=== PATIENT | female | born 1965 | race African-American/Black ===

== ENCOUNTER 2017-03-21 20:38 | Emergency (ER) | payer BC ==
[~2017-03-21] VITALS: Ht 165.1 cm; Wt 68.0 kg
[2017-03-21 21:47] VITALS: BP 182/97
== END 2017-03-22 00:45 | disposition left against medical advice (07) ==
LOC: ER 20:38
DX: R05 Cough (principal); R06.2 Wheezing; Z53.21 Procedure and treatment not carried out due to patient leaving prior to being seen by health care provider

== ENCOUNTER 2018-06-15 14:05 | Inpatient (IN) | payer BC ==
[~2018-06-15] VITALS: Ht 165.1 cm; Wt 64.4 kg
[2018-06-15] MEDS ORDERED: SODIUM CHLORIDE 0.9% 1,000 ML IV ONE ×2 (14:36→18:04)
[2018-06-15] MEDS: ONDANSETRON HCL 4MG/2ML INJ IV STA ×2 (14:48→14:58)
[2018-06-15 15:37] LABS: EOSINOPHILS % 1.4 % (0.0-5.0); HEMATOCRIT. 47.2 % (36.0-48.0); HEMOGLOBIN. 15.8 g/dL (12.0-16.0); LYMPHOCYTES % 41.3 % (20.0-50.0); MEAN CORPUSCULAR VOLUME 89.5 fL (81.0-99.0); MEAN PLATELET VOLUME 10.4 fl (7.4-10.4); MONOCYTES % 10.5 % (2.0-8.0); NEUTROPHILS % 45.8 % (40.0-76.0); PLATELET 289 x1000/uL (130-400); RED BLOOD CELL COUNT 5.28 mill/uL (4.2-5.4); RED CELL DISTRIBUTION WIDTH 15.6 % (11.6-14.6)
[2018-06-15 15:41] LABS: CHLORIDE 99 mEq/L (98-107)
[2018-06-15 15:45] LABS: ETHANOL BLOOD < 10 mg/dL
[2018-06-15] MEDS ORDERED: POTASSIUM CHLORIDE 20MEQ TABLET SR PO ONE (16:30)
[2018-06-15] MEDS ORDERED: ONDANSETRON HCL 4MG/2ML INJ IV STA (18:04)
[2018-06-15] MEDS ORDERED: KCL 10MEQ/50ML PREMIX 50 ML IV ONE (18:15)
[2018-06-15] MEDS ORDERED: ONDANSETRON HCL 4MG/2ML INJ IV SCH (22:32)
[2018-06-15] MEDS ORDERED: LOSA25TA12 MT (23:31)
[2018-06-15] MEDS ORDERED: METF500T60 MT (23:32)
[2018-06-15] MEDS ORDERED: ESOM10SU MT (23:33)
[2018-06-15 23:42] VITALS: BP 134/72
[2018-06-16] VITALS: BP 134/72
[2018-06-16] MEDS ORDERED: SODIUM CHLORIDE 0.45% 1,000 ML IV SCH (00:52)
[2018-06-16] MEDS ORDERED: CLONIDINE 0.1MG TABLET PO PRN (01:00)
[2018-06-16] MEDS ORDERED: ONDANSETRON HCL 4MG/2ML INJ IV PRN (01:00)
[2018-06-16] MEDS ORDERED: DEXTROSE 50% WATER 50ML SYRINGE IV PRN (01:00)
[2018-06-16] MEDS ORDERED: ACETAMINOPHEN 650MG SUPP PR PRN (01:00)
[2018-06-16] MEDS ORDERED: MAGNESIUM/ALUMINUM HYDROXIDE/SIMETHICONE 30ML UDC PO PRN (01:00)
[2018-06-16] MEDS ORDERED: IPRATROPIUM/ALBUTEROL 0.5-3(2.5)MG/3ML NEB INH PRN (01:00)
[2018-06-16] MEDS ORDERED: HYDROCODONE/ACETAMINOPHEN 5/325MG TABLET PO PRN (01:00)
[2018-06-16] MEDS ORDERED: DIPHENHYDRAMINE 50MG/ML VIAL IV PRN (01:00)
[2018-06-16] MEDS ORDERED: DOCUSATE SODIUM 100MG CAPSULE PO PRN (01:00)
[2018-06-16] MEDS ORDERED: GUAIFENESIN 200MG/10ML SUGAR FREE UDC PO PRN (01:00)
[2018-06-16] MEDS ORDERED: ACETAMINOPHEN 650MG/20.3ML UDC GT PRN (01:00)
[2018-06-16] MEDS ORDERED: ACETAMINOPHEN 325MG TABLET PO PRN (01:00)
[2018-06-16] MEDS ORDERED: NA PHOS,M-B/NA PHOS,DI-BA ENEMA 118ML PR PRN (01:00)
[2018-06-16 04:00] VITALS: BP 128/78
[2018-06-16] MEDS ORDERED: SODIUM CHLORIDE 0.9% INJ 3ML FLUSH IVF SCH (06:00)
[2018-06-16] MEDS ORDERED: BLOOD SUGAR DIAGNOSTIC STRIP TEST SCH (07:20)
[2018-06-16] MEDS ORDERED: INSULIN LISPRO 100 UNITS/ML SUBCUT SCH (07:50)
[2018-06-16 08:00] VITALS: BP 104/68
[2018-06-16] MEDS ORDERED: ENOXAPARIN 40MG/0.4ML SYR SUBCUT SCH (09:00)
[2018-06-16] MEDS ORDERED: FAMOTIDINE 20MG/2ML VIAL IV SCH (09:00)
[2018-06-16 12:00] VITALS: BP 164/80
== END 2018-06-16 11:25 | disposition left against medical advice (07) | DRG 684 ==
LOC: ER 14:15 → 6EST 19:35 → EDBEDREQTM 19:37 → EDBEDREQ 19:37 → ENRESERV 22:50
PROVIDERS: ADMIT Family Medicine; ATTEND Family Medicine
DX: N17.0 Acute kidney failure with tubular necrosis (principal); E11.9 Type 2 diabetes mellitus without complications; K21.9 Gastro-esophageal reflux disease without esophagitis; I10 Essential (primary) hypertension; E87.6 Hypokalemia; E86.0 Dehydration; E83.51 Hypocalcemia; E78.5 Hyperlipidemia, unspecified; Z79.84 Long term (current) use of oral hypoglycemic drugs
CPT/HCPCS: 36415; 74176; 82962; 96365; 96375; 99285; G0482; J1650; J2405; J3480; J3490; J7030

== ENCOUNTER 2020-04-06 13:51 | Emergency (ER) | payer BC, MEDICAID ==
[~2020-04-06] VITALS: Ht 165.1 cm; Wt 68.0 kg
[~2020-04-06 13:51] MED LIST: ESOM10SU MT; LOSA25TA26 MT; METF500T60 MT
[2020-04-06 13:52] VITALS: BP 174/93
== END 2020-04-06 16:34 | disposition home or self-care (01) ==
LOC: ER 13:51
DX: M70.22 Olecranon bursitis, left elbow (principal)
CPT/HCPCS: 99281; 99283

== ENCOUNTER 2020-08-06 04:44 | Inpatient (IN) | payer SELFPAY ==
[~2020-08-06] VITALS: Ht 165.1 cm; Wt 65.8 kg
[2020-08-06 05:56] LABS: BASOPHILS % 1.1 % (0.0-2.0); EOSINOPHILS % 1.9 % (0.0-5.0); HEMATOCRIT. 41.1 % (36.0-48.0); HEMOGLOBIN. 13.8 g/dL (12.0-16.0); LYMPHOCYTES % 46.3 % (20.0-50.0); MEAN CORPUSCULAR HEMOGLOBIN 29.9 pg (28.0-32.0); MEAN CORPUSCULAR VOLUME 88.9 fL (81.0-99.0); MEAN PLATELET VOLUME 9.2 fl (7.4-10.4); MONOCYTES % 4.3 % (2.0-8.0); NEUTROPHILS % 46.4 % (40.0-76.0); PLATELET 212 x1000/uL (130-400); RED BLOOD CELL COUNT 4.62 mill/uL (4.2-5.4); RED CELL DISTRIBUTION WIDTH 15.3 % (11.6-14.6)
[2020-08-06 06:04] LABS: CHLORIDE 105 mEq/L (98-107)
[2020-08-06] MEDS ORDERED: KETOROLAC 30MG/ML VIAL IV STA (06:16)
[2020-08-06] MEDS ORDERED: SODIUM CHLORIDE 0.9% 1,000 ML IV ONE (06:30)
[2020-08-06] MEDS ORDERED: ASPIRIN 325MG EC TABLET PO ONE (07:00)
[2020-08-06 07:32] LABS: CLARITY URINE CLEAR (CLEAR); COLOR URINE YELLOW (YELLOW); KETONES URINE NEGATIVE (NEGATIVE); LEUKOCYTE ESTERASE URINE NEGATIVE (NEGATIVE); NITRITE URINE NEGATIVE (NEGATIVE); OCCULT BLOOD URINE NEGATIVE (NEGATIVE); PH URINE 6.5 (4.5-8.0); PROTEIN URINE NEGATIVE (NEGATIVE); SPECIFIC GRAVITY URINE 1.006 (1.005-1.030); UROBILINOGEN URINE 0.2 E.U./dL (0.2-1.0)
[2020-08-06 07:58] LABS: *AMPHETAMINES SCREEN URINE NEGATIVE (NEGATIVE); *BARBITURATES SCREEN URINE NEGATIVE (NEGATIVE); *BENZODIAZEPINES SCREEN URINE NEGATIVE (NEGATIVE); *COCAINE SCREEN URINE NEGATIVE (NEGATIVE); METHADONE URINE SCREEN NEGATIVE (NEGATIVE); OPIATES URINE SCREEN NEGATIVE (NEGATIVE); PHENCYCLIDINE URINE SCREEN NEGATIVE (NEGATIVE)
[2020-08-06 07:59] LABS: CANNABINOID URINE SCREEN NEGATIVE (NEGATIVE)
[2020-08-06] MEDS ORDERED: POTASSIUM CHLORIDE 20MEQ TABLET SR PO ONE (08:45)
[2020-08-06 10:43] VITALS: BP 168/90
[2020-08-06] MEDS ORDERED: EMPA10TA MT (10:55)
[2020-08-06] MEDS: AMLODIPINE 5MG TABLET PO SCH ×2 (11:18→20:56)
[2020-08-06 12:00] VITALS: BP 180/74
[2020-08-06] MEDS ORDERED: TRAMADOL 50MG TABLET PO PRN (12:15)
[2020-08-06] MEDS ORDERED: ZOLPIDEM TARTRATE 5MG TABLET PO PRN (12:15)
[2020-08-06] MEDS ORDERED: NITROGLYCERIN 0.4MG TABLET SL SL PRN (12:15)
[2020-08-06] MEDS ORDERED: ONDANSETRON HCL 4MG/2ML INJ IV PRN (12:15)
[2020-08-06] MEDS ORDERED: DEXTROSE 50% WATER 50ML SYRINGE IV PRN (12:15)
[2020-08-06] MEDS ORDERED: CLONIDINE 0.1MG TABLET PO PRN (12:15)
[2020-08-06] MEDS ORDERED: DOCUSATE SODIUM 100MG CAPSULE PO PRN (12:15)
[2020-08-06] MEDS ORDERED: MAGNESIUM/ALUMINUM HYDROXIDE/SIMETHICONE 30ML UDC PO PRN (12:15)
[2020-08-06] MEDS ORDERED: IPRATROPIUM/ALBUTEROL 0.5-3(2.5)MG/3ML NEB NEB PRN (12:15)
[2020-08-06] MEDS ORDERED: ACETAMINOPHEN 325MG TABLET PO PRN (12:15)
[2020-08-06] MEDS ORDERED: GUAIFENESIN 200MG/10ML SUGAR FREE UDC PO PRN (12:15)
[2020-08-06] MEDS ORDERED: PNEUMOCOCCAL 23-VAL P-SAC VAC 0.5 ML IM ONE (12:45)
[2020-08-06] MEDS: BLOOD SUGAR DIAGNOSTIC STRIP TEST SCH ×3 (13:11→20:57)
[2020-08-06] MEDS: INSULIN LISPRO 100 UNITS/ML SUBCUT SCH ×3 (13:14→21:17)
[2020-08-06] MEDS: ENOXAPARIN 80MG/0.8ML SYR SUBCUT SCH ×2 (13:14→20:57)
[2020-08-06] MEDS ORDERED: INFLUENZA VACCINE 05/PF 0.5 ML VIAL IM ONE (14:00)
[2020-08-06 16:00] VITALS: BP 159/80
[2020-08-06 17:15] LABS: TOTAL IRON BINDING CAPACITY 294 ug/dL (250-450)
[2020-08-06 17:19] LABS: CREATINE KINASE 59 IU/L (26-192)
[2020-08-06 17:20] LABS: CREATINE KINASE MB FRACTION < 1.0 ng/mL (0.5-3.6)
[2020-08-06 17:33] LABS: FOLIC ACID (FOLATE) SERUM 4.2 ng/mL (>5.38)
[2020-08-06 20:00] VITALS: BP 116/92
[2020-08-06] MEDS: FAMOTIDINE 20MG TABLET PO SCH (20:56)
[2020-08-06] MEDS: ASCORBIC ACID 500 MG TABLET PO SCH (20:56)
[2020-08-07] VITALS: BP 178/93
[2020-08-07 00:25] LABS: CREATINE KINASE 51 IU/L (26-192); CREATINE KINASE MB FRACTION < 1.0 ng/mL (0.5-3.6)
[2020-08-07] MEDS: ACETAMINOPHEN 325MG TABLET PO PRN ×2 (02:55→08:43)
[2020-08-07 04:00] VITALS: BP 187/102
[2020-08-07 05:00] VITALS: BP 166/82
[2020-08-07 06:03] LABS: BASOPHILS % 0.6 % (0.0-2.0); EOSINOPHILS % 1.9 % (0.0-5.0); HEMATOCRIT. 36.5 % (36.0-48.0); HEMOGLOBIN. 12.3 g/dL (12.0-16.0); LYMPHOCYTES % 39.6 % (20.0-50.0); MEAN CORPUSCULAR HEMOGLOBIN 30.4 pg (28.0-32.0); MEAN CORPUSCULAR VOLUME 90.4 fL (81.0-99.0); MEAN PLATELET VOLUME 10.1 fl (7.4-10.4); MONOCYTES % 6.2 % (2.0-8.0); NEUTROPHILS % 51.7 % (40.0-76.0); PLATELET 188 x1000/uL (130-400); RED BLOOD CELL COUNT 4.04 mill/uL (4.2-5.4); RED CELL DISTRIBUTION WIDTH 15.6 % (11.6-14.6)
[2020-08-07 06:04] LABS: INR 1.1; PROTHROMBIN TIME 11.7 sec (9.6-11.0)
[2020-08-07 06:16] LABS: CHLORIDE 104 mEq/L (98-107)
[2020-08-07 06:22] LABS: PHOSPHORUS 3.8 mg/dL (2.5-4.9)
[2020-08-07 06:24] LABS: LDL CHOLESTEROL 53 mg/dL (5-100)
[2020-08-07 06:25] LABS: HDL CHOLESTEROL 81 mg/dL (40-59)
[2020-08-07] MEDS: BLOOD SUGAR DIAGNOSTIC STRIP TEST SCH (07:35)
[2020-08-07] MEDS: INSULIN LISPRO 100 UNITS/ML SUBCUT SCH (07:50)
[2020-08-07 08:30] VITALS: BP 174/92
[2020-08-07] MEDS: FAMOTIDINE 20MG TABLET PO SCH (08:43)
[2020-08-07] MEDS: ASCORBIC ACID 500 MG TABLET PO SCH (08:43)
[2020-08-07] MEDS: AMLODIPINE 5MG TABLET PO SCH (08:43)
[2020-08-07] MEDS: ENOXAPARIN 80MG/0.8ML SYR SUBCUT SCH (08:44)
[2020-08-07] MEDS ORDERED: POTASSIUM CHLORIDE 20MEQ TABLET SR PO ONE (08:45)
[2020-08-07] MEDS ORDERED: POTASSIUM CHLORIDE INJ 40 MEQ in DEXT 5% WATER 250 ML IV ONE (08:45)
[2020-08-07] MEDS ORDERED: MAGNESIUM 4 G PREMIX 100 ML IV ONE (08:45)
[2020-08-07] MEDS ORDERED: ZINC SULFATE 220 MG ( 50 ) CAPSULE PO SCH (09:00)
[2020-08-07] MEDS ORDERED: LOSARTAN POTASSIUM 25 MG TABLET PO SCH (09:00)
[2020-08-07] MEDS ORDERED: MAGNESIUM 2 G PREMIX 50 ML IV SCH ×2 (10:00→21:00)
[2020-08-07] MEDS ORDERED: ASPIRIN 81MG EC TABLET PO SCH (10:00)
[2020-08-07] MEDS ORDERED: POTASSIUM CHLORIDE INJ 40 MEQ in DEXT 5% WATER 250 ML IV SCH (10:30)
[2020-08-07] MEDS ORDERED: POTASSIUM CHLORIDE 20MEQ TABLET SR PO NR (21:00)
== END 2020-08-07 11:17 | disposition left against medical advice (07) | DRG 190 ==
LOC: ER 04:44 → 6WST 08:26 → EDBEDREQTM 08:31 → EDBEDREQ 08:31 → ENRESERV 09:59
PROVIDERS: ADMIT Internal Medicine; ATTEND Internal Medicine
DX: I21.4 Non-ST elevation (NSTEMI) myocardial infarction (principal); E11.65 Type 2 diabetes mellitus with hyperglycemia; E83.51 Hypocalcemia; E87.6 Hypokalemia; Z53.29 Procedure and treatment not carried out because of patient's decision for other reasons; K52.9 Noninfective gastroenteritis and colitis, unspecified; F17.210 Nicotine dependence, cigarettes, uncomplicated; I10 Essential (primary) hypertension; J44.9 Chronic obstructive pulmonary disease, unspecified; Z79.4 Long term (current) use of insulin; Z79.82 Long term (current) use of aspirin; Z82.3 Family history of stroke; Z82.49 Family history of ischemic heart disease and other diseases of the circulatory system
CPT/HCPCS: 36415; 71045; 80053; 80061; 80305; 81003; 82550; 82553; 82607; 82746; 82962; 83036; 83540; 83550; 83735; 83880; 84100; 84484; 85025; 87070; 87430; 90686; 90732; 93005; 93306; 93970; 99291; J1650; J1815; J1885; J3475; J3480; J7030; J7060

== ENCOUNTER 2022-06-04 14:35 | Emergency (ER) | payer SELFPAY ==
[~2022-06-04] VITALS: Ht 165.1 cm; Wt 61.0 kg
[~2022-06-04 14:35] MED LIST changes: +EMPA10TA MT; -METF500T60 MT
[2022-06-04 14:42] VITALS: BP 141/99
[2022-06-04] MEDS ORDERED: ALBUTEROL (0.083%) 2.5MG/3ML NEB HHN STA (18:20)
[2022-06-04] MEDS ORDERED: IPRATROPIUM BROMIDE (0.02%) 0.5MG/2.5ML NEB HHN STA (18:20)
[2022-06-04] MEDS ORDERED: PREDNISONE 20MG TABLET PO STA (18:20)
[2022-06-04] MEDS ORDERED: ALBUTEROL (0.5%) 2.5MG/0.5ML NEB HHN ONE (18:32)
[2022-06-04] MEDS ORDERED: GUAI600T26 MT (19:34)
[2022-06-04] MEDS ORDERED: P20 MT (19:34)
[2022-06-04] MEDS ORDERED: ALBU6.7H3 INH (19:34)
== END 2022-06-04 20:00 | disposition home or self-care (01) ==
LOC: ER 14:35
DX: J20.9 Acute bronchitis, unspecified (principal); I10 Essential (primary) hypertension; Z72.0 Tobacco use; E11.9 Type 2 diabetes mellitus without complications; Z79.899 Other long term (current) drug therapy
CPT/HCPCS: 71045; 99283; J7512; Z7610

== ENCOUNTER 2023-01-20 01:17 | Emergency (ER) | payer MEDICAID ==
[~2023-01-20] VITALS: Ht 172.7 cm; Wt 76.4 kg
[~2023-01-20 01:17] MED LIST changes: +ALBU6.7H3 INH; +GUAI600T26 MT; +P20 MT
[2023-01-20 01:20] VITALS: O2SAT 99
[2023-01-20 01:50] LABS: BASOPHILS % 0.9 % (0.0-2.0); EOSINOPHILS % 2.1 % (0.0-5.0); HEMATOCRIT. 34.5 % (36.0-48.0); HEMOGLOBIN. 11.7 g/dL (12.0-16.0); LYMPHOCYTES % 46.9 % (20.0-50.0); MEAN CORPUSCULAR HEMOGLOBIN 28.1 pg (28.0-32.0); MEAN CORPUSCULAR HGB CONC 33.8 g/dL (31.0-37.0); MEAN CORPUSCULAR VOLUME 83.1 fL (81.0-99.0); MEAN PLATELET VOLUME 9.2 fl (7.4-10.4); MONOCYTES % 5.4 % (2.0-8.0); NEUTROPHILS % 44.7 % (40.0-76.0); PLATELET 242 x1000/uL (130-400); PROTHROMBIN TIME 10.3 sec (9.6-11.0); RED BLOOD CELL COUNT 4.15 mill/uL (4.2-5.4); RED CELL DISTRIBUTION WIDTH 16.7 % (11.6-14.6); WHITE BLOOD COUNT 9.6 x1000/uL (4.5-11.0)
[2023-01-20 01:51] LABS: CHLORIDE 103 mEq/L (98-107); INDEX HEMOLYSI 1 (1-3); INDEX ICTERIC 1 (1-4); INDEX LIPEMIC 1 (1-3); POTASSIUM 3.7 mEq/L (3.5-5.1); SODIUM 136 mEq/L (136-145)
[2023-01-20 02:02] LABS: ALANINE AMINOTRANSFERASE 17 IU/L (13-61); ALBUMIN 3.8 g/dL (3.4-5.0); ASPARTATE AMINOTRANSFERASE 8 IU/L (15-37); BILIRUBIN TOTAL 0.2 mg/dL (0.1-1.0); CARBON DIOXIDE 26 mEq/L (21-32); ETHANOL BLOOD < 10 mg/dL (-10); GLUCOSE 202 mg/dL (70-105); UREA NITROGEN BLOOD 26 mg/dL (7-21)
[2023-01-20 02:22] LABS: TROPONIN I HIGH SENSITIVITY 109 ng/L (<54)
[2023-01-20] MEDS ORDERED: IOHEXOL-350 100 ML BOTTLE ONE (03:07)
[2023-01-20 03:14] LABS: CLARITY URINE CLEAR (CLEAR); COLOR URINE YELLOW (YELLOW); GLUCOSE URINE NEGATIVE (NEGATIVE); KETONES URINE NEGATIVE (NEGATIVE); LEUKOCYTE ESTERASE URINE NEGATIVE (NEGATIVE); NITRITE URINE NEGATIVE (NEGATIVE); OCCULT BLOOD URINE NEGATIVE (NEGATIVE); PROTEIN URINE NEGATIVE (NEGATIVE); SPECIFIC GRAVITY URINE 1.018 (1.005-1.030); UROBILINOGEN URINE 0.2 E.U./dL (0.2-1.0)
[2023-01-20 03:39] LABS: *AMPHETAMINES SCREEN URINE NEGATIVE (NEGATIVE); *BARBITURATES SCREEN URINE NEGATIVE (NEGATIVE); *BENZODIAZEPINES SCREEN URINE NEGATIVE (NEGATIVE); *COCAINE SCREEN URINE NEGATIVE (NEGATIVE); CANNABINOID URINE SCREEN NEGATIVE (NEGATIVE); ECSTASY MDMA SCREEN URINE NEGATIVE (NEGATIVE); METHADONE URINE SCREEN NEGATIVE (NEGATIVE); OPIATES URINE SCREEN NEGATIVE (NEGATIVE); PHENCYCLIDINE URINE SCREEN NEGATIVE (NEGATIVE)
[2023-01-20 04:12] VITALS: BP 116/76; PULSE 62; RESP 12
== END 2023-01-20 04:13 | disposition short-term general hospital (02) ==
LOC: ER 01:32
DX: I63.9 Cerebral infarction, unspecified (principal); I10 Essential (primary) hypertension; Z79.899 Other long term (current) drug therapy; Z86.73 Personal history of transient ischemic attack (TIA), and cerebral infarction without residual deficits
CPT/HCPCS: 80053; 80305; 81003; 80320; 82962; 85025; 85610; 84484; 36415; 71045; 70496; 70498; 70450; 93005; 99291; Q9967; Z7610; 99281; G0480